=== PATIENT | female | born 1960 | race Caucasian/White ===

== ENCOUNTER 2025-04-03 11:13 | Inpatient (IN) | payer OTHER ==
[~2025-04-03] VITALS: Ht 165.1 cm; Wt 56.7 kg
[2025-04-03] MEDS ORDERED: NALOXONE 2 MG/2 ML SYRINGE ONE (11:29)
[2025-04-03] MEDS ORDERED: NALOXONE HCL 0.4 MG/ML AMPUL IV ONE (11:30)
[2025-04-03] MEDS ORDERED: NALOXONE NASAL SPRAY 4 MG SPRAY NS ONE (11:32)
[2025-04-03] MEDS: NALOXONE NASAL SPRAY 4 MG SPRAY NS ONE (11:32)
[2025-04-03 11:43] LABS: PLATELET COUNT (AUTO) 112 K/uL (179-408); RED BLOOD CELL COUNT(AUTO) 4.54 MIL/uL (3.63-4.92); RED CELL DISTRIBUTION WIDTH 14.1 % (12.3-17.7); WHITE BLOOD COUNT (AUTO) 5.0 K/uL (3.8-11.8)
[2025-04-03 12:35] LABS: ETHANOL < 3 MG/DL (0-10)
[2025-04-03] MEDS: IV NORMAL SALINE 1000 ML BAG IV ONE (12:36)
[2025-04-03 12:49] LABS: CREATININE 0.6 mg/dL (0.6-1.3); SODIUM SERUM 135 mmol/L (136-145); UREA NITROGEN, BLOOD 6 mg/dL (7-18)
[2025-04-03 13:04] LABS: ASPARTATE AMINOTRANSFERASE 40 U/L (15-37); TOTAL PROTEIN, SERUM 6.6 g/dL (6.4-8.2)
[2025-04-03 14:00] LABS: *BILIRUBIN,URIN NEGATIVE (NEGATIVE); *BLOOD, URINE NEGATIVE (NEGATIVE); *CLARITY,URINE CLEAR (CLEAR); *COLOR,URINE YELLOW (YELLOW); *KETONES,URINE NEGATIVE (NEGATIVE); *PROTEIN,URINE NEGATIVE (NEGATIVE); *UROBILINOGEN,URINE 1.0 E.U./dl (NORMAL); LEUKOCYTE ESTERASE ,URINE NEGATIVE (NEGATIVE); NITRITE, URINE NEGATIVE (NEGATIVE); UGLUCOSE NEGATIVE (NEGATIVE)
[2025-04-03 14:14] LABS: *AMPHETAMINE, URINE POSITIVE (NEGATIVE); *BARBITURATE, URINE NEGATIVE (NEGATIVE); *BENZODIAZEPINE, URINE NEGATIVE (NEGATIVE); *CANNABINOID, URINE POSITIVE (NEGATIVE); *COCCAINE, URINE NEGATIVE (NEGATIVE); *OPIATE, URINE NEGATIVE (NEGATIVE); *PHENCYCLIDINE SCREEN,URINE POSITIVE (NEGATIVE); FENTANYL, URINE POSITIVE (NEGATIVE)
[2025-04-03 14:49] LABS: SQUAMOUS EPITHELIAL CELL,UR FEW /HPF (NONE SEEN)
[2025-04-03 14:52] VITALS: BP 121/59
[2025-04-03 15:27] VITALS: BP 142/71; TEMP 99.6; O2SAT 98
[2025-04-03] MEDS ORDERED: REMEDY ESSENTIAL ZINC PASTE 113 GM TP PRN (16:30)
[2025-04-03] MEDS ORDERED: MAGNESIUM HYDROXIDE 30 ML LIQUID UDC PO PRN (16:30)
[2025-04-03] MEDS ORDERED: ONDANSETRON 4 MG/2 ML VIAL IV PRN (16:30)
[2025-04-03] MEDS ORDERED: ZOLPIDEM 5 MG TABLET PO PRN (16:30)
[2025-04-03] MEDS ORDERED: NALOXONE HCL 0.4 MG/ML AMPUL IV PRN (17:00)
[2025-04-03] MEDS: ENOXAPARIN SODIUM 40 MG/0.4 ML DISP.SYRIN SQ SCH (18:56)
[2025-04-03] MEDS: LACTULOSE 20 G/30 ML LIQUID UDC PO SCH (18:56)
[2025-04-03] MEDS: IV NS 1000 ML 1,000 ML IV PRN (18:57)
[2025-04-03 19:00] VITALS: BP 141/74; TEMP 100; O2SAT 99
[2025-04-03] MEDS: ACETAMINOPHEN 325 MG TABLET PO PRN (21:07)
[2025-04-04] VITALS: BP 144/78; TEMP 99.3; O2SAT 100
[2025-04-04 04:00] VITALS: BP 148/81; TEMP 98.6; O2SAT 100
[2025-04-04] MEDS: PANTOPRAZOLE SODIUM 40 MG TABLET.DR PO SCH (06:10)
[2025-04-04 07:01] LABS: PLATELET COUNT (AUTO) 94 K/uL (179-408); RED BLOOD CELL COUNT(AUTO) 4.63 MIL/uL (3.63-4.92); RED CELL DISTRIBUTION WIDTH 14.2 % (12.3-17.7); WHITE BLOOD COUNT (AUTO) 3.4 K/uL (3.8-11.8)
[2025-04-04 07:37] LABS: ASPARTATE AMINOTRANSFERASE 30.0 U/L (15-37); CREATININE 0.5 mg/dL (0.6-1.3); SODIUM SERUM 139.0 mmol/L (136-145); TOTAL PROTEIN, SERUM 7.2 g/dL (6.4-8.2); UREA NITROGEN, BLOOD 5.0 mg/dL (7-18)
[2025-04-04 09:58] LABS: LYMPHOCYTES % (MANUAL) 40 % (20-40); MONOCYTES % (MANUAL) 11 % (2-10); NEUTROPHILS % (MANUAL) 49 % (42-75); PLATELET ESTIMATE DECREASED
[2025-04-04] MEDS: POTASSIUM CHLORIDE 20 MEQ TAB.PRT.SR PO ONE (11:24)
[2025-04-04 12:34] VITALS: BP 135/72; TEMP 97.7; O2SAT 100
[2025-04-04] MEDS ORDERED: BUPR-96 PO (12:55)
[2025-04-04] MEDS: buPROPion XL 150 MG TAB.SR.24H PO SCH (14:23)
[2025-04-04 16:02] VITALS: BP 121/72; TEMP 98.2; O2SAT 99
[2025-04-04 19:00] VITALS: BP 113/64; TEMP 98; O2SAT 100
[2025-04-05] VITALS: BP 144/73; TEMP 98.3; O2SAT 96
[2025-04-05 04:00] VITALS: BP 136/80; TEMP 98.2; O2SAT 100
[2025-04-05 07:10] LABS: PLATELET COUNT (AUTO) 110 K/uL (179-408); RED BLOOD CELL COUNT(AUTO) 4.62 MIL/uL (3.63-4.92); RED CELL DISTRIBUTION WIDTH 14.1 % (12.3-17.7); WHITE BLOOD COUNT (AUTO) 3.2 K/uL (3.8-11.8)
[2025-04-05 07:34] VITALS: BP 143/72; TEMP 97.6; O2SAT 100
[2025-04-05 08:04] LABS: CREATININE 0.5 mg/dL (0.6-1.3); SODIUM SERUM 142.0 mmol/L (136-145); UREA NITROGEN, BLOOD 6.0 mg/dL (7-18)
[2025-04-05 11:07] VITALS: BP_SYST 123; BP_SYST 168; BP_DIAS 69; BP_DIAS 93; TEMP 98.2; O2SAT 95
[2025-04-05] MEDS ORDERED: NALO4SPR BNOSTRILS (12:27)
[2025-04-05] MEDS ORDERED: LEVO500T90 PO (12:27)
[2025-04-05 15:48] VITALS: BP 148/90; TEMP 97.5; O2SAT 96
== END 2025-04-05 20:40 | disposition home or self-care (01) | DRG 812 ==
LOC: ER 11:13 → TELE3 14:50 → TELE 17:35 → TELE3 17:45 → MEDSURG3 04-05 19:08
PROVIDERS: ADMIT Student in an Organized Health Care Education/Training Program; ATTEND Student in an Organized Health Care Education/Training Program
PROC: 05HB33Z Insertion of Infusion Device into Right Basilic Vein, Percutaneous Approach (ICD-10-PCS; principal; 2025-04-03)
DX: T40.411A Poisoning by fentanyl or fentanyl analogs, accidental (unintentional), initial encounter (principal); G92.8 Other toxic encephalopathy; U07.1 COVID-19; E44.1 Mild protein-calorie malnutrition; D69.6 Thrombocytopenia, unspecified; E87.1 Hypo-osmolality and hyponatremia; T40.991A Poisoning by other psychodysleptics [hallucinogens], accidental (unintentional), initial encounter; T40.721A Poisoning by synthetic cannabinoids, accidental (unintentional), initial encounter; Y92.89 Other specified places as the place of occurrence of the external cause; F15.10 Other stimulant abuse, uncomplicated; F12.10 Cannabis abuse, uncomplicated; J40 Bronchitis, not specified as acute or chronic; E87.6 Hypokalemia; F16.10 Hallucinogen abuse, uncomplicated; B19.20 Unspecified viral hepatitis C without hepatic coma; R79.89 Other specified abnormal findings of blood chemistry
CPT/HCPCS: 36415; 70030-TC; 70450; 71045; 83735; 83921; 84100; 84443; 84484; 85025; A4663; G0378; G0480; J1650; J2312; J7040